=== PATIENT | male | born 1930 | race Hispanic/Latino ===

== ENCOUNTER 2019-12-19 08:11 | Inpatient (IN) | payer MEDICARE ==
--- NOTE | 2019-12-19 09:27 | Emergency Department Report ---
ED General Adult HPI - General Chief complaint: Dyspnea/Respdistress Stated complaint: TINO Time Seen by Provider: 12/19/19 09:13 Source: patient, EMS ( EMS documentation not available at time of chart dictation ), RN notes reviewed, old records reviewed Mode of arrival: Stretcher Limitations: Physical Limitation - History of Present Illness Initial comments: The patient is an 89-year-old gentleman. He is not known to myself previously. He has a history of a flutter, currently on Eliquis therapy, heart disease, status post angioplasty, currently on Eliquis, presenting to the ER with a complaint of painless shortness of breath. He reports compliance with his medications. He does not know who his primary care doctor is. He believes that his used building materials yard worker is Dr. Shanice Ferrer His shortness of breath has been getting worse over the past 2 days. He denies recent travel, surgeries, denies headache, neck pain, chest pain, abdominal pain, urinary symptoms, he has new onset orthopnea, he is not sure if he has lower extremity edema which is new or old. In the emergency room, his symptoms were improved with rest, elevation of the head of the bed, supplemental oxygen. EMS documentation is not available at this time. -: Gradual, days(s) Severity scale (0 -10): 0 Improves with: rest Worsens with: movement - Related Data Home Medications Medication Instructions Recorded Confirmed Last Taken Apixaban [Eliquis] 2.5 mg PO BID 12/19/19 12/19/19 12/18/19 08:00 Aspirin EC [Halfprin EC] 81 mg PO DAILY 12/19/19 12/19/19 12/18/19 08:00 AtorvaSTATin [Lipitor] 80 mg PO QHS 12/19/19 12/19/19 12/18/19 08:00 Clopidogrel [Plavix] 75 mg PO DAILY 12/19/19 12/19/19 12/18/19 08:00 Furosemide [Lasix TAB] 40 mg PO DAILY 12/19/19 12/19/19 12/18/19 08:00 Isosorbide Dinitrate [Isordil 10 mg PO TID 12/19/19 12/19/19 12/18/19 20:00 Titradose] Metoprolol Xl [Metoprolol 12.5 mg PO QDAY 12/19/19 12/19/19 12/18/19 08:00 SUCCINATE ER TAB] hydrALAZINE [Apresoline] 25 mg PO Q8HR 12/19/19 12/19/19 12/18/19 08:00 Allergies Allergy/AdvReac Type Severity Reaction Status Date / Time Penicillins Allergy Unknown Verified 10/18/19 08:32 Tetanus Vaccines and Toxoid Allergy Unknown Verified 10/18/19 08:32 [Tetanus Vaccines & Toxoid] ED Review of Systems ROS: Stated complaint: TINO Other details as noted in HPI Constitutional: malaise. denies: fever Eyes: denies: eye discharge ENT: congestion Respiratory: shortness of breath Cardiovascular: denies: chest pain, syncope Gastrointestinal: denies: nausea, vomiting, hematemesis, melena, hematochezia Genitourinary: denies: dysuria Musculoskeletal: as per HPI Skin: as per HPI Neurological: as per HPI Psychiatric: as per HPI Hematological/Lymphatic: as per HPI ED Past Medical Hx - Past Medical History Hx Hypertension: No Hx Heart Attack/AMI: Yes (Heart bypass surgery) Hx Congestive Heart Failure: No Hx Diabetes: No Hx GERD: Yes Hx Asthma: No Hx COPD: Yes Additional medical history: pneumonia in nov 2013, sleep apnea - Surgical History Hx Open Heart Surgery: Yes Additional Surgical History: knee surgery - Social History Smoking Status: Former Smoker Substance Use Type: None - Medications Home Medications: Home Medications Medication Instructions Recorded Confirmed Last Taken Type Apixaban [Eliquis] 2.5 mg PO BID 12/19/19 12/19/19 12/18/19 08:00 History Aspirin EC [Halfprin EC] 81 mg PO DAILY 12/19/19 12/19/19 12/18/19 08:00 History AtorvaSTATin [Lipitor] 80 mg PO QHS 12/19/19 12/19/19 12/18/19 08:00 History Clopidogrel [Plavix] 75 mg PO DAILY 12/19/19 12/19/19 12/18/19 08:00 History Furosemide [Lasix TAB] 40 mg PO DAILY 12/19/19 12/19/19 12/18/19 08:00 History Isosorbide Dinitrate [Isordil 10 mg PO TID 12/19/19 12/19/19 12/18/19 20:00 History Titradose] Metoprolol Xl [Metoprolol 12.5 mg PO QDAY 12/19/19 12/19/19 12/18/19 08:00 History SUCCINATE ER TAB] hydrALAZINE [Apresoline] 25 mg PO Q8HR 12/19/19 12/19/19 12/18/19 08:00 History ED Physical Exam - General Limitations: Physical Limitation General appearance: alert, anxious - Head Head exam: Present: atraumatic, normocephalic - Eye Eye exam: Present: normal appearance, EOMI. Absent: nystagmus - ENT ENT exam: Present: normal exam, normal orophraynx, mucous membranes moist, normal external ear exam - Neck Neck exam: Present: normal inspection, full ROM. Absent: tenderness, meningismus - Respiratory Respiratory exam: Present: rales (Very fine rales noted at the base), accessory muscle use, other (Patient is tachypneic initially). Absent: rhonchi, stridor - Cardiovascular Cardiovascular Exam: Present: regular rate, irregular rhythm, JVD. Absent: rubs, gallop - GI/Abdominal GI/Abdominal exam: Present: soft. Absent: distended, tenderness, guarding, rebound, rigid, pulsatile mass - Rectal Rectal exam: Present: deferred - Extremities Exam Extremities exam: Present: normal inspection, full ROM, pedal edema, other (2+ pulses noted in the bilateral upper and lower extremities. There is no palpable cord. negative Homans sign. Muscular compartments are soft. The pelvis is stable.). Absent: calf tenderness - Back Exam Back exam: Present: normal inspection, full ROM. Absent: tenderness, CVA tenderness (R), CVA tenderness (L), paraspinal tenderness, vertebral tenderness - Neurological Exam Neurological exam: Present: alert, other (There is no facial droop. The tongue is midline. Extraocular movements are intact bilaterally. There is 5 out of 5 strength in bilateral upper and lower extremities. Sensation is intact to light touch bilateral upper and lower extremities. ). Absent: motor sensory deficit - Psychiatric Psychiatric exam: Present: anxious - Skin Skin exam: Present: warm, dry, intact, normal color. Absent: rash ED Course Vital Signs 12/19/19 12/19/19 12/19/19 08:44 08:45 08:47 Temperature 98.5 F Pulse Rate 68 68 68 Respiratory 21 23 22 Rate Blood Pressure 134/66 134/66 O2 Sat by Pulse 93 94 93 Oximetry 12/19/19 12/19/19 12/19/19 08:52 09:00 09:15 Temperature Pulse Rate 67 67 Respiratory 21 25 H Rate Blood Pressure 149/81 145/77 O2 Sat by Pulse 96 94 94 Oximetry 12/19/19 12/19/19 12/19/19 09:31 09:45 10:01 Temperature Pulse Rate 66 66 66 Respiratory 13 22 26 H Rate Blood Pressure 145/77 136/71 136/71 O2 Sat by Pulse 81 L 80 L 96 Oximetry 12/19/19 12/19/19 12/19/19 10:15 10:31 10:45 Temperature Pulse Rate 67 78 66 Respiratory 20 14 25 H Rate Blood Pressure 136/71 136/71 136/71 O2 Sat by Pulse 96 89 94 Oximetry 12/19/19 12/19/19 12/19/19 11:00 11:15 11:31 Temperature Pulse Rate 66 67 66 Respiratory 17 17 20 Rate Blood Pressure 144/77 157/88 151/73 O2 Sat by Pulse 97 97 92 Oximetry 12/19/19 11:45 Temperature Pulse Rate 66 Respiratory 16 Rate Blood Pressure 140/74 O2 Sat by Pulse 91 Oximetry - Reevaluation(s) Reevaluation #1: 12/19/19 11:33 Laboratory studies show metabolic acidosis, arterial blood gas shows metabolic acidosis without respiratory compensation, renal insufficiency is noted, with hyperkalemia, lactic acidosis, and a probable type II myocardial infarction. Suspect that the patient may have cardiorenal syndrome. We will discuss with nephrology on-call to determine optimal plan of management. Patient may require simultaneous IV fluids as well as judicious diuresis. We will also discussed with the hospitalist. - Consultations Consultation #1: 12/19/19 12:03 Discussed with nephrology, Dr. Bonds, who recommends 40 mg of Lasix, 1 amp of sodium bicarbonate, 30 g of Kayexalate. We discussed the patient's history, physical, laboratory studies, and suspicion of cardiorenal syndrome with fluid overload. He will see the patient shortly. ED Medical Decision Making - Lab Data Result diagrams: 12/19/19 10:52 12/19/19 10:52 Vital Signs 12/19/19 12/19/19 08:47 08:52 Temperature 98.5 F Pulse Rate 68 Respiratory 22 Rate Blood Pressure 134/66 O2 Sat by Pulse 93 96 Oximetry - EKG Data -: EKG Interpreted by Wy - EKG Data 12/19/19 11:18 Atrial flutter, 4-1 AV block, normal axis, QTC 507 ms, T wave inversions V2 and V3, the EKG is abnormal, it is not consistent with a STEMI. There is no endorsement of chest pain. - Radiology Data Radiology results: report reviewed, image reviewed Print Report Referring Physician: HAMILTON JOHN Patient Name: CONNIE GUZMAN Date of : 1930 Sex: Male Report Date: 2019-12-19 Report Status: Finalized Findings [facility], [place] [address] [place] [address] XRay Report Signed Patient: CONNIE GUZMAN MR#: [id number] : 1930 Acct:[id number] Age/Sex: 89 / M ADM Date: 12/19/19 Loc: ED Attending Dr: Ordering Physician: HAMILTON JOHN MD Date of Service: 12/19/19 Procedure(s): XR chest 1V ap Accession Number(s): [id number] cc: HAMILTNO JOHN MD Fluoro Time In Minutes: CHEST 1 VIEW INDICATION: Dyspnea. COMPARISON: 10/18/2019 FINDINGS: Support devices: None. Heart: Within normal limits. Lungs/Pleura: Persistent mild edema. Additional findings: None. IMPRESSION: 1. Persistent mild edema. Signer Name: Long Vieira MD Signed: 12/19/2019 9:52 AM Workstation Name: [id number] Transcribed By: JW Dictated By: Long Vieira MD Electronically Authenticated By: Long Vieira MD Signed Date/Time: 12/19/19951 DD/ 0 - Medical Decision Making Differential diagnosis, including but not limited to: Congestive heart failure, pneumonia, atrial flutter, fluid overload, acute coronary syndrome Assessment and plan: 89-year-old gentleman with painless shortness of breath, found to be hypoxic, arterial blood gas shows acute hypoxemic respiratory failure, also was initially tachypneic, with fine rales, JVD, and lower extremity edema. X-ray of the chest suggests pulmonary vascular congestion. Clinical picture consistent with acute decompensated congestive heart failure. He appears to be very comfortable on supplemental oxygen. He is taking systemic anticoagulation, Eliquis. Laboratory studies pending at this time, we will admit to the medical service once initial diagnostics have resulted. Critical Care Time: Yes Critical care time in (mins) excluding proc time.: 35 Critical care attestation.: If time is entered above; I have spent that time in minutes in the direct care of this critically ill patient, excluding procedure time. ED Disposition Clinical Impression: Acute hypoxemic respiratory failure, Cardiorenal syndrome with renal failure Disposition: OP ADMIT IP TO THIS HOSP Is pt being admited?: Yes Does the pt Need Aspirin: Yes Condition: Serious Referrals: KENDELL DARBY MD [Primary Care Provider] - 3-5 Days
--- NOTE | 2019-12-19 09:56 | XRay Report ---
CHEST 1 VIEW INDICATION: Dyspnea. COMPARISON: 10/18/2019 FINDINGS: Support devices: None. Heart: Within normal limits. Lungs/Pleura: Persistent mild edema. Additional findings: None. IMPRESSION: 1. Persistent mild edema. Signer Name: Long Vieira MD Signed: 12/19/2019 9:52 AM Workstation Name: [id number]
[2019-12-19 10:07] LABS: ABG Base Excess -7.1 mmol/L (-2.0-3.0); ABG HCO3 18.1 mmol/L (20.0-26.0); ABG Methemoglobin 0.5 % (0.0-1.5); ABG Oxygen Saturation 92.7 % (95.0-99.0); ABG PCO2 35.9 mm Hg; ABG PH 7.321 pH Units (7.350-7.450); ABG PO2 69.4 mm Hg (80.0-90.0)
[2019-12-19 10:48] LABS: INR 1.1 (0.87-1.13)
[2019-12-19 10:50] LABS: Partial Thromboplastin Time 24.1 Sec. (24.2-36.6)
[2019-12-19 11:07] LABS: Basophils # (Auto) 0.1 K/mm3 (0.0-0.1); Basophils % (Auto) 1.2 % (0.0-1.8); Eosinophils # (Auto) 0.3 K/mm3 (0.0-0.4); Eosinophils % (Auto) 2.8 % (0.0-4.3); Hematocrit 33.7 % (35.5-45.6); Hemoglobin 10.6 gm/dl (11.8-15.2); Lymphocytes # (Auto) 0.8 K/mm3 (1.2-5.4); Lymphocytes % (Auto) 8.4 % (13.4-35.0); Mean Corpuscular HGB Conc 32 % (32-34); Mean Corpuscular Volume 90 fl (84-94); Monocytes # (Auto) 0.9 K/mm3 (0.0-0.8); Monocytes % (Auto) 8.9 % (0.0-7.3); Platelet Count 274 K/mm3 (140-440); Red Blood Count 3.73 M/mm3 (3.65-5.03); Red Cell Distribution Width 15.5 % (13.2-15.2)
[2019-12-19 11:30] LABS: Albumin 3.7 g/dL (3.9-5)
[2019-12-19] MEDS ORDERED: SODIUM BICARB 8.4% 50 MEQ/50 ML SYRINGE IV ONE (12:03)
[2019-12-19] MEDS ORDERED: FUROSEMIDE 40 MG/4 ML INJ IV ONE (12:03)
[2019-12-19] MEDS ORDERED: SODIUM POLYSTYRENE 15 GM/60 ML ORAL LIQD PO ONE (12:03)
[2019-12-19 13:12] LABS: Chol/HDL Ratio 3.39 %
--- NOTE | 2019-12-19 14:49 | History and Physical Report ---
History of Present Illness Date of examination: 12/19/19 Date of admission: 12/19/19 11:37 Chief complaint: Increasing SOB for History of present illness: 89-year-old male with history of a flutter and status post angioplasty, currently on Eliquis, presenting to the ER with a complaint of shortness of breath for 2 days.SOB on minimal exertion.No chest pain.Orthopnea present.No chest pain.Patient has class IV NYHA symptoms.No recent travel. No exposure to villar virus patients. Had cath on 10/18/19 with PCI of mid LAD ,Also Triple vessel disease .Given the complexity of CAD pateint was transferred to [facility] for further care. Past Medical History Hypertension Heart Attack/AMI: Yes (Heart bypass surgery) GERD: Yes COPD: Yes CHF Additional medical history: pneumonia in nov 2013, sleep apnea Surgical History Hx Open Heart Surgery: Yes Additional Surgical History: knee surgery Social History Smoking Status: Former Smoker Substance Use Type: None Family History Htn - Medications Home Medications: Home Medications Medication Instructions Recorded Confirmed Last Taken Type Apixaban [Eliquis] 2.5 mg PO BID 12/19/19 12/19/19 12/18/19 08:00 History Aspirin EC [Halfprin EC] 81 mg PO DAILY 12/19/19 12/19/19 12/18/19 08:00 History AtorvaSTATin [Lipitor] 80 mg PO QHS 12/19/19 12/19/19 12/18/19 08:00 History Clopidogrel [Plavix] 75 mg PO DAILY 12/19/19 12/19/19 12/18/19 08:00 History Furosemide [Lasix TAB] 40 mg PO DAILY 12/19/19 12/19/19 12/18/19 08:00 History Isosorbide Dinitrate [Isordil 10 mg PO TID 12/19/19 12/19/19 12/18/19 20:00 History Titradose] Metoprolol Xl [Metoprolol 12.5 mg PO QDAY 12/19/19 12/19/19 12/18/19 08:00 History SUCCINATE ER TAB] hydrALAZINE [Apresoline] 25 mg PO Q8HR 12/19/19 12/19/19 12/18/19 08:00 History Review of Systems ROS: Stated complaint: TINO Other details as noted in HPI Constitutional: malaise. denies: fever Eyes: denies: eye discharge ENT: congestion Respiratory: shortness of breath Cardiovascular: denies: chest pain, syncope Gastrointestinal: denies: nausea, vomiting, hematemesis, melena, hematochezia Genitourinary: denies: dysuria Musculoskeletal: as per HPI Skin: as per HPI Neurological: as per HPI Psychiatric: as per HPI Hematological/Lymphatic: as per HPI Medications and Allergies Allergies Allergy/AdvReac Type Severity Reaction Status Date / Time Penicillins Allergy Unknown Verified 10/18/19 08:32 Tetanus Vaccines and Toxoid Allergy Unknown Verified 10/18/19 08:32 [Tetanus Vaccines & Toxoid] Home Medications Medication Instructions Recorded Confirmed Last Taken Type Apixaban [Eliquis] 2.5 mg PO BID 12/19/19 12/19/19 12/18/19 08:00 History Aspirin EC [Halfprin EC] 81 mg PO DAILY 12/19/19 12/19/19 12/18/19 08:00 History AtorvaSTATin [Lipitor] 80 mg PO QHS 12/19/19 12/19/19 12/18/19 08:00 History Clopidogrel [Plavix] 75 mg PO DAILY 12/19/19 12/19/19 12/18/19 08:00 History Furosemide [Lasix TAB] 40 mg PO DAILY 12/19/19 12/19/19 12/18/19 08:00 History Isosorbide Dinitrate [Isordil 10 mg PO TID 12/19/19 12/19/19 12/18/19 20:00 History Titradose] Metoprolol Xl [Metoprolol 12.5 mg PO QDAY 12/19/19 12/19/19 12/18/19 08:00 History SUCCINATE ER TAB] hydrALAZINE [Apresoline] 25 mg PO Q8HR 12/19/19 12/19/19 12/18/19 08:00 History Exam - Constitutional Vitals: Temp Pulse Resp BP Pulse Ox 98.5 F 66 16 140/74 91 12/19/19 08:47 12/19/19 11:45 12/19/19 11:45 12/19/19 11:45 12/19/19 11:45 General appearance: Present: mild distress, well-nourished - EENT Eyes: Present: PERRL ENT: hearing intact, clear oral mucosa - Neck Neck: Present: supple, normal ROM - Respiratory Respiratory effort: normal Respiratory: bilateral: CTA - Cardiovascular Rhythm: regular Heart Sounds: Present: S1 & S2. Absent: rub, click - Extremities Extremities: pulses symmetrical, No edema Peripheral Pulses: within normal limits - Abdominal General gastrointestinal: Present: soft, non-tender, non-distended, normal bowel sounds Male genitourinary: Present: normal - Integumentary Integumentary: Present: clear, warm, dry - Musculoskeletal Musculoskeletal: gait normal, strength equal bilaterally - Psychiatric Psychiatric: appropriate mood/affect, intact judgment & insight - Neurologic Neurologic: CNII-XII intact, moves all extremities GABY score - Gaby Score Age > 65: (1) Yes Aspirin use within the Past 7 Days: (0) No 3 or more CAD Risk Factors: (0) No 2 or more Angina events in past 24 hrs: (0) No Known CAD with more than 50% Stenosis: (0) No Elevated Cardiac Markers: (0) No ST Deviation Greater than 0.5mm: (1) Yes GABY Score: 2 Results - Labs CBC & Chem 7: 12/19/19 10:52 12/20/19 05:33 Labs: Laboratory Last Values WBC 9.7 K/mm3 (4.5-11.0) 12/19/19 10:52 RBC 3.73 M/mm3 (3.65-5.03) 12/19/19 10:52 Hgb 10.6 gm/dl (11.8-15.2) L 12/19/19 10:52 Hct 33.7 % (35.5-45.6) L 12/19/19 10:52 MCV 90 fl (84-94) 12/19/19 10:52 MCH 28 pg (28-32) 12/19/19 10:52 MCHC 32 % (32-34) 12/19/19 10:52 RDW 15.5 % (13.2-15.2) H 12/19/19 10:52 Plt Count 274 K/mm3 (140-440) 12/19/19 10:52 Lymph % (Auto) 8.4 % (13.4-35.0) L 12/19/19 10:52 [place] % (Auto) 8.9 % (0.0-7.3) H 12/19/19 10:52 Eos % (Auto) 2.8 % (0.0-4.3) 12/19/19 10:52 Baso % (Auto) 1.2 % (0.0-1.8) 12/19/19 10:52 Lymph # 0.8 K/mm3 (1.2-5.4) L 12/19/19 10:52 [place] # 0.9 K/mm3 (0.0-0.8) H 12/19/19 10:52 Eos # 0.3 K/mm3 (0.0-0.4) 12/19/19 10:52 Baso # 0.1 K/mm3 (0.0-0.1) 12/19/19 10:52 Seg Neutrophils % 78.7 % (40.0-70.0) H 12/19/19 10:52 Seg Neutrophils # 7.6 K/mm3 (1.8-7.7) 12/19/19 10:52 PT 14.3 Sec. (12.2-14.9) 12/19/19 10:04 INR 1.10 (0.87-1.13) 12/19/19 10:04 APTT 24.1 Sec. (24.2-36.6) L 12/19/19 10:04 ABG pH 7.321 pH Units (7.350-7.450) L 12/19/19 09:45 ABG pCO2 35.9 mm Hg 12/19/19 09:45 ABG pO2 69.4 mm Hg (80.0-90.0) L 12/19/19 09:45 ABG HCO3 18.1 mmol/L (20.0-26.0) L 12/19/19 09:45 ABG O2 Saturation 92.7 % (95.0-99.0) L 12/19/19 09:45 ABG O2 Content 18.1 (0.0-44) 12/19/19 09:45 ABG Base Excess -7.1 mmol/L (-2.0-3.0) L 12/19/19 09:45 ABG Hemoglobin 14.2 gm/dl (14.0-18.0) 12/19/19 09:45 ABG Carboxyhemoglobin 1.5 % (0.0-5.0) 12/19/19 09:45 ABG Methemoglobin 0.5 % (0.0-1.5) 12/19/19 09:45 Oxyhemoglobin 90.8 % (95.0-99.0) L 12/19/19 09:45 FiO2 21 % 12/19/19 09:45 Sodium 142 mmol/L (137-145) 12/19/19 10:52 Potassium 5.6 mmol/L (3.6-5.0) H 12/19/19 10:52 Chloride 108.6 mmol/L (98-107) H 12/19/19 10:52 Carbon Dioxide 17 mmol/L (22-30) L 12/19/19 10:52 Anion Gap 22 mmol/L 12/19/19 10:52 BUN 67 mg/dL (9-20) H 12/19/19 10:52 Creatinine 3.7 mg/dL (0.8-1.5) H 12/19/19 10:52 Estimated GFR 16 ml/min 12/19/19 10:52 BUN/Creatinine Ratio 18 % 12/19/19 10:52 Glucose 93 mg/dL (75-100) 12/19/19 10:52 POC Glucose 90 (70-105) 12/19/19 12:11 Lactic Acid 2.70 mmol/L (0.7-2.0) H* 12/19/19 10:52 Calcium 9.0 mg/dL (8.4-10.2) 12/19/19 10:52 Magnesium 2.00 mg/dL (1.7-2.3) 12/19/19 10:52 Total Bilirubin 0.30 mg/dL (0.1-1.2) 12/19/19 10:52 AST 50 units/L (5-40) H 12/19/19 10:52 ALT 55 units/L (7-56) 12/19/19 10:52 Alkaline Phosphatase 144 units/L (35-129) H 12/19/19 10:52 Total Creatine Kinase 73 units/L (55-170) 12/19/19 10:52 Troponin T 0.053 ng/mL (0.00-0.029) H 12/19/19 10:52 Total Protein 7.8 g/dL (6.3-8.2) 12/19/19 10:52 Albumin 3.7 g/dL (3.9-5) L 12/19/19 10:52 Albumin/Globulin Ratio 0.9 % 12/19/19 10:52 Triglycerides 86 mg/dL (2-149) 12/19/19 10:52 Cholesterol 129 mg/dL (50-199) 12/19/19 10:52 LDL Cholesterol Direct 88 mg/dL (50-130) 12/19/19 10:52 HDL Cholesterol 38 mg/dL (40-59) L 12/19/19 10:52 Cholesterol/HDL Ratio 3.39 % 12/19/19 10:52 Blood Type O POSITIVE 12/19/19 10:52 Antibody Screen Negative 12/19/19 10:52 Short CBC 12/19/19 Range/Units 10:52 WBC 9.7 (4.5-11.0) K/mm3 Hgb 10.6 L (11.8-15.2) gm/dl Hct 33.7 L (35.5-45.6) % Plt Count 274 (140-440) K/mm3 BMP 12/19/19 10:52 Sodium 142 Potassium 5.6 H Chloride 108.6 H Carbon Dioxide 17 L BUN 67 H Creatinine 3.7 H Glucose 93 Calcium 9.0 Cardiac Enzymes 12/19/19 Range/Units 10:52 Total Creatine Kinase 73 (55-170) units/L Troponin T 0.053 H (0.00-0.029) ng/mL Liver Function 12/19/19 Range/Units 10:52 Total Bilirubin 0.30 (0.1-1.2) mg/dL AST 50 H (5-40) units/L ALT 55 (7-56) units/L Alkaline Phosphatase 144 H (35-129) units/L Albumin 3.7 L (3.9-5) g/dL Urine 12/19/19 Range/Units 22:00 Urine Color Colorless (Yellow) Urine pH 6.0 (5.0-7.0) Ur Specific [place] 1.008 (1.003-1.030) Urine Protein <15 mg/dl (Negative) mg/dL Urine Glucose (UA) Neg (Negative) mg/dL - Imaging and Cardiology EKG: report reviewed Chest x-ray: report reviewed Imaging and Cardiology: CXR Heart: Within normal limits. Lungs/Pleura: Persistent mild edema. Additional findings: None. IMPRESSION: 1. Persistent mild edema EKG ATRIAL FLUTTER WITH PREDOMINANT 4:1 AV BLOCK ABNORMAL T, CONSIDER ISCHEMIA, ANTERIOR LEADS PROLONGED QT INTERVAL [place]/IV: IV Catheter Type [Left INT / Saline Lock Antecubital] Assessment and Plan Advance Directives: Yes (Full code) VTE prophylaxis?: Chemical Plan of care discussed with patient/family: Yes - Patient Problems (1) Acute hypoxemic respiratory failure Current Visit: Yes Status: Acute Plan to address problem: Patient's P O2 was 69.4 Sec to CHF Diuresis Creatinine may go up further (2) Acute exacerbation of CHF (congestive heart failure) Current Visit: Yes Status: Acute Qualifiers: Heart failure type: combined systolic and diastolic Qualified Code(s): I50.43 - Acute on chronic combined systolic (congestive) and diastolic (congestive) heart failure Plan to address problem: Lasix 40 mg IV Bid Daily weights Daily i/o's (3) REZA (acute kidney injury) Current Visit: No Status: Acute Plan to address problem: Baseline bun/creatinine was 21/1.6 on 10/18/2019 Today it is 67/3.7 and patient in CHF exacerbation. Treatment conundrum because patient has to be diuresed Cr[place] may go up further Nephrology consult requested (4) Hyperkalemia Current Visit: No Status: Acute Plan to address problem: Treated Recheck K level (5) Atrial flutter, chronic Current Visit: Yes Status: Chronic Plan to address problem: on Eliuquis and Beta blockers (6) HLD (hyperlipidemia) Current Visit: Yes Status: Chronic Qualifiers: Hyperlipidemia type: mixed hyperlipidemia Qualified Code(s): E78.2 - Mixed hyperlipidemia Plan to address problem: Cont statins (7) Transaminitis Current Visit: Yes Status: Acute Plan to address problem: Sec to Hepatic congestion Check Hepatitis profile (8) Malnutrition Current Visit: Yes Status: Chronic Qualifiers: Protein-calorie malnutrition severity: mild Plan to address problem: Dietary supplements (9) Elevated troponin level Current Visit: Yes Status: Acute Plan to address problem: Troponin leak sec to CHF and elevated Creatinine (10) Elevated lactic acid level Current Visit: Yes Status: Acute (11) CAD (coronary artery disease) Current Visit: Yes Status: Chronic Qualifiers: Coronary Disease-Associated Artery/Lesion type: bypass graft [place] vs. transplanted heart: [place] heart Plan to address problem: COnt Eliquis (12) HTN (hypertension) Current Visit: Yes Status: Chronic Qualifiers: Hypertension type: essential hypertension Qualified Code(s): I10 - Essential (primary) hypertension Plan to address problem: Cont anti hypertensives (13) DVT prophylaxis Current Visit: Yes Status: Chronic Plan to address problem: On Eliquis for A flutter and CAD GIprophylaxis initiated
--- NOTE | 2019-12-19 16:21 | Consultation ---
History of Present Illness - Reason for Consult Consult date: 12/19/19 acute renal failure Requesting physician: HAMILTON JOHN - History of Present Illness The patient is an 89-year-old gentleman. He is not known to myself previously. He has a history of a flutter, currently on Eliquis therapy, heart disease, status post angioplasty, currently on Eliquis, presenting to the ER with a complaint of painless shortness of breath. He reports compliance with his medi cations. He does not know who his primary care doctor is. He believes that his bread wrapping machine feeder is Dr. Shanice Ferrer His shortness of breath has been getting worse over the past 2 days. He denies recent travel, surgeries, denies headache, neck pain, chest pain, abdominal pain, urinary symptoms, he has new onset orthopnea, he is not sure if he has lower extremity edema which is new or old. In the emergency room, his symptoms were improved with rest, elevation of the head of the bed, supplemental oxygen. Records indicate that he had a serum creatinine of 1.6 in October of this year. Prior to that his creatinine has also been elevated to approximately 2.0 back in 2018. Patient states that he had seen a lead qa analyst before in the [place] area. However does not recall his name. Past History Past Medical History: hypertension, other (Chronic kidney disease, atrial flutter and coronary artery disease) Past Surgical History: No surgical history Social history: no significant social history Family history: no significant family history Medications and Allergies Allergies Allergy/AdvReac Type Severity Reaction Status Date / Time Penicillins Allergy Unknown Verified 10/18/19 08:32 Tetanus Vaccines and Toxoid Allergy Unknown Verified 10/18/19 08:32 [Tetanus Vaccines & Toxoid] Home Medications Medication Instructions Recorded Confirmed Last Taken Type Apixaban [Eliquis] 2.5 mg PO BID 12/19/19 12/19/19 12/18/19 08:00 History Aspirin EC [Halfprin EC] 81 mg PO DAILY 12/19/19 12/19/19 12/18/19 08:00 History AtorvaSTATin [Lipitor] 80 mg PO QHS 12/19/19 12/19/19 12/18/19 08:00 History Clopidogrel [Plavix] 75 mg PO DAILY 12/19/19 12/19/19 12/18/19 08:00 History Furosemide [Lasix TAB] 40 mg PO DAILY 12/19/19 12/19/19 12/18/19 08:00 History Isosorbide Dinitrate [Isordil 10 mg PO TID 12/19/19 12/19/19 12/18/19 20:00 History Titradose] Metoprolol Xl [Metoprolol 12.5 mg PO QDAY 12/19/19 12/19/19 12/18/19 08:00 History SUCCINATE ER TAB] hydrALAZINE [Apresoline] 25 mg PO Q8HR 12/19/19 12/19/19 12/18/19 08:00 History Review of Systems All systems: negative (Negative except as noted above) Exam - Vital Signs Vital signs: Vital Signs Pulse Resp Pulse Ox 68 21 93 12/19/19 08:44 12/19/19 08:44 12/19/19 08:44 - General Appearance General appearance: well-developed, well-nourished, appears stated age EENT: PERRL, mucous membranes moist Neck: Present: neck supple, trachea midline, JVD/HJR (JVD positive). Absent: Masses Respiratory: Rales (Bibasal crackles) Heart: irregularly irregular Gastrointestinal: Present: normal, normoactive bowel sounds Integumentary: other (Trace edema) Results - Lab Results 12/19/19 10:52 12/19/19 10:52 Most recent lab results ABG pH 7.321 pH Units (7.350-7.450) L 12/19/19 09:45 ABG pCO2 35.9 mm Hg 12/19/19 09:45 ABG pO2 69.4 mm Hg (80.0-90.0) L 12/19/19 09:45 ABG HCO3 18.1 mmol/L (20.0-26.0) L 12/19/19 09:45 ABG O2 Saturation 92.7 % (95.0-99.0) L 12/19/19 09:45 Calcium 9.0 mg/dL (8.4-10.2) 12/19/19 10:52 Magnesium 2.00 mg/dL (1.7-2.3) 12/19/19 10:52 Assessment and Plan Impression * Acute on chronic renal failure. Baseline creatinine approximately 1.13 October 2019 * Shortness of breath. Secondary to congestive heart failure * Atrial flutter * Hyperkalemia * Metabolic acidosis Recommendations * Patient is clinically volume overloaded. Continue loop diuretics as needed * He most likely has underlying cardiorenal syndrome * Agree with medical management of hyperkalemia * Add oral sodium bicarbonate * Check a UA as well as renal ultrasound * Check vasculitis work-up as well * Avoid nephrotoxins * If renal function worsens and/or if inadequate response to diuresis, he may need renal replacement therapy * Thank you very much for the consultation. Shall follow along with you
[2019-12-19] MEDS: FUROSEMIDE 40 MG/4 ML INJ IV SCH (18:59)
[2019-12-19] MEDS ORDERED: HYDROmorphone 1 MG/1 ML INJ IV PRN (19:31)
[2019-12-19] MEDS ORDERED: ACETAMINOPHEN 325 MG TAB PO PRN ×2 (19:31→19:34)
[2019-12-19] MEDS ORDERED: METOCLOPRAMIDE 10 MG/2 ML INJ IV PRN (19:31)
[2019-12-19] MEDS ORDERED: ONDANSETRON 4 MG/2 ML INJ IV PRN ×2 (19:31→19:34)
[2019-12-19] MEDS ORDERED: oxyCODONE /ACETAMINOPHEN 5-325MG TAB PO PRN (19:31)
[2019-12-19] MEDS ORDERED: PROMETHAZINE 25 MG RECT SUPP PR PRN (19:31)
[2019-12-19] MEDS: METOPROLOL SUCCINATE XL 25 MG TAB PO SCH (20:25)
[2019-12-19] MEDS: hydrALAZINE 25 MG TAB PO SCH (20:41)
[2019-12-19] MEDS: FAMOTIDINE 20 MG/2 ML INJ IV SCH (20:42)
[2019-12-19] MEDS: APIXABAN 2.5 MG TAB PO SCH (20:42)
[2019-12-19] MEDS: CLOPIDOGREL 75 MG TAB PO SCH (20:46)
[2019-12-19] MEDS: ASPIRIN EC 81 MG TAB PO SCH (20:46)
[2019-12-19 20:57] LABS: Hepatitis B Surface Antigen Non-Reactive (Negative); Hepatitis C Virus Antibody Non-Reactive (NonReactive)
[2019-12-20 00:19] LABS: Bilirubin,Urine NEG (Negative); Blood,Urine NEG (Negative); Color,Urine Colorless (Yellow); Protein,Urine <15 mg/dL mg/dL (Negative); Urobilinogen,Urine < 2.0 mg/dL (<2.0); WBC,Urine < 1.0 /HPF (0.0-6.0)
[2019-12-20] MEDS: ISOSORBIDE DINITRATE 10 MG TAB PO SCH ×4 (04:34→21:58)
[2019-12-20] MEDS: FAMOTIDINE 20 MG/2 ML INJ IV SCH ×2 (04:35→09:00)
[2019-12-20] MEDS: APIXABAN 2.5 MG TAB PO SCH ×3 (04:35→21:58)
[2019-12-20] MEDS: SODIUM BICARBONATE 650 MG TAB PO SCH ×3 (04:35→21:58)
[2019-12-20] MEDS: hydrALAZINE 25 MG TAB PO SCH ×4 (04:35→21:58)
[2019-12-20 06:49] LABS: Calcium 8.5 mg/dL (8.4-10.2)
[2019-12-20] MEDS: FUROSEMIDE 40 MG/4 ML INJ IV SCH ×2 (07:39→17:39)
[2019-12-20] MEDS: ASPIRIN EC 81 MG TAB PO SCH (09:00)
[2019-12-20] MEDS: METOPROLOL SUCCINATE XL 25 MG TAB PO SCH (09:01)
[2019-12-20] MEDS: CLOPIDOGREL 75 MG TAB PO SCH (09:01)
--- NOTE | 2019-12-20 11:54 | Progress Note ---
Assessment and Plan Impression * Acute on chronic renal failure. Baseline creatinine approximately 1.13 October 2019 * Shortness of breath. Secondary to congestive heart failure * Atrial flutter * Hyperkalemia * Metabolic acidosis * Coronary artery disease. Recent myocardial infarction. Recommendations * Patient is clinically volume overloaded. Continue loop diuretics as needed * Discussed with Dr. Gonzalez . He had acute myocardial infarction in October of this year and was transferred to [facility]. He had acute kidney injury at that time and required 1 dialysis treatment. His most recent creatinine was approximately 4.2 . He most likely had ATN. * His renal function appears to be stable. No urgent indication for dialysis today * He seems to be responding to loop diuretic as well. 2100 cc of urine recorded since admission * Hyperkalemia has been corrected with medical treatment * Acidosis is improving. Continue oral sodium bicarbonate * His urine does not show any dipstick blood or protein. * Follow-up results of renal ultrasound and vasculitis work-up * Avoid nephrotoxins * If renal function worsens and/or if inadequate response to diuresis, he may need renal replacement therapy Subjective Date of service: 12/20/19 Interval history: Patient is comfortable today. His shortness of breath is improving. Denies any nausea or vomiting. Objective - Vital Signs Vital signs: Vital Signs - 12hr 12/20/19 12/20/19 12/20/19 02:55 04:02 05:03 Temperature 97.8 F Pulse Rate 69 66 Respiratory 20 18 Rate Blood Pressure 158/71 O2 Sat by Pulse 94 Oximetry 12/20/19 12/20/19 07:39 08:43 Temperature 98.3 F Pulse Rate 69 65 Respiratory 18 Rate Blood Pressure 158/71 138/57 O2 Sat by Pulse 78 L Oximetry - General Appearance General appearance: well-developed, well-nourished, appears stated age EENT: PERRL, mucous membranes moist Neck: JVD (Neck vein encouraged.) Respiratory: Present: Rales (At the bases) Cardiology: irregularly irregular Gastrointestinal: normal, normoactive bowel sounds Integumentary: other (Trace edema) - Lab 12/19/19 10:52 12/20/19 05:33 Most recent lab results ABG pH 7.321 pH Units (7.350-7.450) L 12/19/19 09:45 ABG pCO2 35.9 mm Hg 12/19/19 09:45 ABG pO2 69.4 mm Hg (80.0-90.0) L 12/19/19 09:45 ABG HCO3 18.1 mmol/L (20.0-26.0) L 12/19/19 09:45 ABG O2 Saturation 92.7 % (95.0-99.0) L 12/19/19 09:45 Calcium 8.5 mg/dL (8.4-10.2) 12/20/19 05:33 Magnesium 2.00 mg/dL (1.7-2.3) 12/19/19 10:52 Medications & Allergies - Medications Allergies/Adverse Reactions: Allergies Penicillins Allergy (Verified 10/18/19 08:32) Unknown Tetanus Vaccines and Toxoid [Tetanus Vaccines & Toxoid] Allergy (Verified 10/18/19 08:32) Unknown Home Medications: Home Medications Medication Instructions Recorded Confirmed Last Taken Type Apixaban [Eliquis] 2.5 mg PO BID 12/19/19 12/19/19 12/18/19 08:00 History Aspirin EC [Halfprin EC] 81 mg PO DAILY 12/19/19 12/19/19 12/18/19 08:00 History AtorvaSTATin [Lipitor] 80 mg PO QHS 12/19/19 12/19/19 12/18/19 08:00 History Clopidogrel [Plavix] 75 mg PO DAILY 12/19/19 12/19/19 12/18/19 08:00 History Furosemide [Lasix TAB] 40 mg PO DAILY 12/19/19 12/19/19 12/18/19 08:00 History Isosorbide Dinitrate [Isordil 10 mg PO TID 12/19/19 12/19/19 12/18/19 20:00 History Titradose] Metoprolol Xl [Metoprolol 12.5 mg PO QDAY 12/19/19 12/19/19 12/18/19 08:00 History SUCCINATE ER TAB] hydrALAZINE [Apresoline] 25 mg PO Q8HR 12/19/19 12/19/19 12/18/19 08:00 History Active Medications: Generic Name Dose Route Start Last Admin Trade Name Freq PRN Reason Stop Dose Admin Acetaminophen 650 mg 12/19/19 19:34 Tylenol PO Q4H PRN Pain MILD(1-3)/Fever >100.5/KANG Apixaban 2.5 mg 12/19/19 22:00 12/20/19 09:01 Eliquis PO 2.5 mg BID RAVI Administration Protocol Aspirin 81 mg 12/19/19 20:00 12/20/19 09:00 Halfprin Ec PO 81 mg DAILY RAVI Administration Clopidogrel Bisulfate 75 mg 12/19/19 20:00 12/20/19 09:01 Plavix PO 75 mg DAILY RAVI Administration Famotidine 10 mg 12/20/19 22:00 Pepcid PO BID [facility] Furosemide 40 mg 12/19/19 18:00 12/20/19 07:39 Lasix IV 40 mg 0600,1800 [facility] Administration Hydralazine HCl 25 mg 12/19/19 22:00 12/20/19 07:39 Apresoline PO 25 mg Q8HR RAVI Administration Hydromorphone HCl 0.5 mg 12/19/19 19:31 Dilaudid IV Q3H PRN Pain , Severe (7-10) Isosorbide Dinitrate 10 mg 12/19/19 20:00 12/20/19 08:00 Isordil Titradose PO 10 mg TID [facility] Administration Metoclopramide HCl 5 mg 12/19/19 19:31 Reglan IV Q6H PRN Nausea And Vomiting Metoprolol Succinate 12.5 mg 12/19/19 20:00 12/20/19 09:01 Metoprolol Xl PO 12.5 mg QDAY RAVI Administration Ondansetron HCl 4 mg 12/19/19 19:34 Zofran IV Q8H PRN Nausea And Vomiting Oxycodone/Acetaminophen 1 tab 12/19/19 19:31 Percocet 5/325 PO Q6H PRN Pain, Moderate (4-6) Promethazine HCl 25 mg 12/19/19 19:31 Phenergan [place] Q6H PRN N/V IF NPO AND NO IV ACCESS Sodium Bicarbonate 650 mg 12/19/19 22:00 12/20/19 09:00 Sodium Bicarbonate PO 650 mg BID RAVI Administration Sodium Chloride 10 ml 12/19/19 22:00 12/20/19 09:02 Sodium Chloride Flush Syringe 10 Ml IV 10 ml BID RAVI Administration Sodium Chloride 10 ml 12/19/19 19:31 Sodium Chloride Flush Syringe 10 Ml IV PRN PRN LINE FLUSH
--- NOTE | 2019-12-20 12:01 | Consultation ---
History of Present Illness Consult date: 12/20/19 Requesting physician: YESI COOPER Consult reason: congestive heart failure History of present illness: This is an 89-year-old white male with past medical history of known coronary arterial disease in October had a myocardial infarction which had stenting of his mid LAD across a 90% diagonal patient had distal RCA disease sluggish flow in the LAD was transferred to [place]. Patient found have a right pseudoaneurysm repair requiring blood transfusion secondary to hypotension. Patient also wanted to acute renal failure requiring hemodialysis. Patient also was at [place] on December and had [facility] cardioversion. Support there was persistent patient had a creatinine level IV.5 there. Patient has history of atrial flutter is found to be back in atrial flutter controlled rate. Patient is receiving IV diuretics and source (improving. Patient is on acute on chronic renal failure. Past History Past Medical History: atrial fib (atrial flutter), CAD, hypertension, renal failure, other (Chronic kidney disease, atrial flutter and coronary artery disease) Past Surgical History: No surgical history, CABG, Other (right groin pseudoaneurysm repair) Social history: no significant social history Family history: no significant family history Medications and Allergies Allergies Allergy/AdvReac Type Severity Reaction Status Date / Time Penicillins Allergy Unknown Verified 10/18/19 08:32 Tetanus Vaccines and Toxoid Allergy Unknown Verified 10/18/19 08:32 [Tetanus Vaccines & Toxoid] Home Medications Medication Instructions Recorded Confirmed Last Taken Type Apixaban [Eliquis] 2.5 mg PO BID 12/19/19 12/19/19 12/18/19 08:00 History Aspirin EC [Halfprin EC] 81 mg PO DAILY 12/19/19 12/19/19 12/18/19 08:00 History AtorvaSTATin [Lipitor] 80 mg PO QHS 12/19/19 12/19/19 12/18/19 08:00 History Clopidogrel [Plavix] 75 mg PO DAILY 12/19/19 12/19/19 12/18/19 08:00 History Furosemide [Lasix TAB] 40 mg PO DAILY 12/19/19 12/19/19 12/18/19 08:00 History Isosorbide Dinitrate [Isordil 10 mg PO TID 12/19/19 12/19/19 12/18/19 20:00 History Titradose] Metoprolol Xl [Metoprolol 12.5 mg PO QDAY 12/19/19 12/19/19 12/18/19 08:00 History SUCCINATE ER TAB] hydrALAZINE [Apresoline] 25 mg PO Q8HR 12/19/19 12/19/19 12/18/19 08:00 History Active Meds: Active Medications Acetaminophen (Tylenol) 650 mg PO Q4H PRN PRN Reason: Pain MILD(1-3)/Fever >100.5/KANG Apixaban (Eliquis) 2.5 mg PO BID [facility]; Protocol Last Admin: 12/20/19 09:01 Dose: 2.5 mg Documented by: Aspirin (Halfprin Ec) 81 mg PO DAILY [facility] Last Admin: 12/20/19 09:00 Dose: 81 mg Documented by: Clopidogrel Bisulfate (Plavix) 75 mg PO DAILY [facility] Last Admin: 12/20/19 09:01 Dose: 75 mg Documented by: Famotidine (Pepcid) 10 mg PO BID [facility] Furosemide (Lasix) 40 mg IV 0600,1800 [facility] Last Admin: 12/20/19 07:39 Dose: 40 mg Documented by: Hydralazine HCl (Apresoline) 25 mg PO Q8HR [facility] Last Admin: 12/20/19 07:39 Dose: 25 mg Documented by: Hydromorphone HCl (Dilaudid) 0.5 mg IV Q3H PRN PRN Reason: Pain , Severe (7-10) Isosorbide Dinitrate (Isordil Titradose) 10 mg PO TID [facility] Last Admin: 12/20/19 08:00 Dose: 10 mg Documented by: Metoclopramide HCl (Reglan) 5 mg IV Q6H PRN PRN Reason: Nausea And Vomiting Metoprolol Succinate (Metoprolol Xl) 12.5 mg PO QDAY [facility] Last Admin: 12/20/19 09:01 Dose: 12.5 mg Documented by: Ondansetron HCl (Zofran) 4 mg IV Q8H PRN PRN Reason: Nausea And Vomiting Oxycodone/Acetaminophen (Percocet 5/325) 1 tab PO Q6H PRN PRN Reason: Pain, Moderate (4-6) Promethazine HCl (Phenergan) 25 mg CO Q6H PRN PRN Reason: N/V IF NPO AND NO IV ACCESS Sodium Bicarbonate (Sodium Bicarbonate) 650 mg PO BID [facility] Last Admin: 12/20/19 09:00 Dose: 650 mg Documented by: Sodium Chloride (Sodium Chloride Flush Syringe 10 Ml) 10 ml IV BID [facility] Last Admin: 12/20/19 09:02 Dose: 10 ml Documented by: Sodium Chloride (Sodium Chloride Flush Syringe 10 Ml) 10 ml IV PRN PRN PRN Reason: LINE FLUSH Physical Examination Vital Signs Pulse Resp Pulse Ox 68 21 93 12/19/19 08:44 12/19/19 08:44 12/19/19 08:44 General appearance: no acute distress, well-nourished HEENT: Positive: PERRL, Mucus Membranes Moist Neck: Positive: neck supple, trachea midline Cardiac: Positive: Reg Rate and Rhythm, Irregularly Regular, S1/S2. Negative: Audible Murmur Lungs: Positive: clear to auscultation, Normal Breath Sounds, Decreased Breath Sounds Neuro: Positive: Grossly Intact Abdomen: Positive: Soft, Active Bowel Sounds. Negative: Tender, Distended Male genitourinary: Positive: normal Skin: Positive: Clear Incision: Cardiac Cath Site Musculoskeletal: No Pain, Normal Range of Motion Extremities: Present: normal. Absent: edema Results 12/19/19 10:52 12/20/19 05:33 Lipids 12/19/19 Range/Units 10:52 HDL Cholesterol 38 L (40-59) mg/dL Cholesterol/HDL Ratio 3.39 % Comprehensive Metabolic Panel 12/20/19 Range/Units 05:33 Sodium 138 (137-145) mmol/L Potassium 4.2 D (3.6-5.0) mmol/L Chloride 101.5 (98-107) mmol/L Carbon Dioxide 19 L (22-30) mmol/L BUN 68 H (9-20) mg/dL Creatinine 3.5 H (0.8-1.5) mg/dL Glucose 89 (75-100) mg/dL Calcium 8.5 (8.4-10.2) mg/dL - Imaging and Cardiology Echo: report reviewed ([place] 12/2019. Normal LV function) Cardiac cath: report reviewed (10/2019 with a patent LAD trifurcation 99% PCI of the LAD with 2 drug-eluting stents circumflex. 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 diuretics if patient can maintain euvolemic status will hold the dialysis not patient may require dialysis discussed this with patient - Patient Problems (1) NSTEMI (non-ST elevated myocardial infarction) Current Visit: Yes Status: Acute Plan to address problem: type 2 (2) Acute exacerbation of CHF (congestive heart failure) Current Visit: Yes Status: Acute Qualifiers: Heart failure type: combined systolic and diastolic Qualified Code(s): I50.43 - Acute on chronic combined systolic (congestive) and diastolic (congestive) heart failure (3) Acute hypoxemic respiratory failure Current Visit: Yes Status: Acute (4) Cardiorenal syndrome with renal failure Current Visit: Yes Status: Acute (5) Atrial flutter, chronic Current Visit: Yes Status: Chronic (6) CAD (coronary artery disease) Current Visit: Yes Status: Chronic Qualifiers: Coronary Disease-Associated Artery/Lesion type: bypass graft [place] vs. tra nsplanted heart: [place] heart Associated angina: with stable angina Qualified Code(s): I25.708 - Atherosclerosis of coronary artery bypass graft(s), unspecified, with other forms of angina pectoris (7) HLD (hyperlipidemia) Current Visit: Yes Status: Chronic Qualifiers: Hyperlipidemia type: mixed hyperlipidemia Qualified Code(s): E78.2 - Mixed hyperlipidemia (8) HTN (hypertension) Current Visit: Yes Status: Chronic Qualifiers: Hypertension type: essential hypertension Qualified Code(s): I10 - Essential (primary) hypertension
--- NOTE | 2019-12-20 12:13 | Ultrasound Report ---
Renal ultrasound. HISTORY: Acute renal insufficiency. FINDINGS: Right kidney measures 10.5 x 4.4 x 3.8 cm. Cortex measures 1.2 cm. Left kidney measures 10. 1 x 4.3 x 4.5 cm. Cortex measures 1 cm. Negative for mass or obstruction. Cortical echogenicity is no rmal. An anterior right renal cyst measures 1.6 cm. There are 2 left-sided cyst measuring 1.9 cm each. The bladder contains moderate urine. IMPRESSION: Benign-appearing renal cysts. Signer Name: Lorenzo Chen MD Signed: 12/20/2019 12:08 PM Workstation Name: [id number]
--- NOTE | 2019-12-20 16:57 | Progress Note ---
Assessment and Plan - Patient Problems (1) Acute hypoxemic respiratory failure Current Visit: Yes Status: Acute Plan to address problem: Patient's P O2 was 69.4 Sec to CHF Diuresis Creatinine may go up further Improved to 68/3.5 (2) Acute exacerbation of CHF (congestive heart failure) Current Visit: Yes Status: Acute Qualifiers: Heart failure type: combined systolic and diastolic Qualified Code(s): I50.43 - Acute on chronic combined systolic (congestive) and diastolic (congestive) heart failure Plan to address problem: Lasix 40 mg IV Bid Daily weights Daily i/o's Symptomatically slightly better (3) REZA (acute kidney injury) Current Visit: No Status: Acute Plan to address problem: Baseline bun/creatinine was 21/1.6 on 10/18/2019 Today it is 67/3.7 and patient in CHF exacerbation. Treatment conundrum because patient has to be diuresed Cratine may go up further Nephrology consult appreciated Creatinine improved from 3.7-3.5 (4) Hyperkalemia Current Visit: No Status: Acute Plan to address problem: Treated K level improved to normal--4.2 from 5.6 (5) Atrial flutter, chronic Current Visit: Yes Status: Chronic Plan to address problem: on Eliuquis and Beta blockers (6) HLD (hyperlipidemia) Current Visit: Yes Status: Chronic Qualifiers: Hyperlipidemia type: mixed hyperlipidemia Qualified Code(s): E78.2 - Mixed hyperlipidemia Plan to address problem: Cont statins (7) Transaminitis Current Visit: Yes Status: Acute Plan to address problem: Sec to Hepatic congestion Hepatitis profile negative (8) Malnutrition Current Visit: Yes Status: Chronic Qualifiers: Protein-calorie malnutrition severity: mild Plan to address problem: Dietary supplements (9) Elevated troponin level Current Visit: Yes Status: Acute Plan to address problem: Troponin leak sec to CHF and elevated Creatinine (10) Elevated lactic acid level Current Visit: Yes Status: Acute (11) CAD (coronary artery disease) Current Visit: Yes Status: Chronic Qualifiers: Coronary Disease-Associated Artery/Lesion type: bypass graft [place] vs. transplanted heart: [place] heart Associated angina: with stable angina Qualified Code(s): I25.708 - Atherosclerosis of coronary artery bypass graft(s), unspecified, with other forms of angina pectoris Plan to address problem: COnt Eliquis (12) HTN (hypertension) Current Visit: Yes Status: Chronic Qualifiers: Hypertension type: essential hypertension Qualified Code(s): I10 - Essential (primary) hypertension Plan to address problem: Cont anti hypertensives (13) DVT prophylaxis Current Visit: Yes Status: Chronic Plan to address problem: On Eliquis for A flutter and CAD GIprophylaxis initiated Subjective Date of service: 12/20/19 Objective - Constitutional Vitals: Vital Signs - 12hr 12/20/19 12/20/19 12/20/19 05:03 07:39 08:43 Temperature 98.3 F Pulse Rate 66 69 65 Respiratory 18 Rate Blood Pressure 158/71 138/57 O2 Sat by Pulse 78 L Oximetry 12/20/19 12/20/19 10:00 12:16 Temperature 98.1 F Pulse Rate Respiratory 18 Rate Blood Pressure 121/68 O2 Sat by Pulse 94 Oximetry General appearance: Present: mild distress, well-nourished - EENT Eyes: PERRL, EOM intact ENT: hearing intact, clear oral mucosa Ears: bilateral: normal - Neck Neck: supple, normal ROM - Respiratory Respiratory effort: normal Respiratory: bilateral: CTA - Breasts Breasts: normal - Cardiovascular Heart rate: 78 Rhythm: regular Heart Sounds: Present: S1 & S2. Absent: gallop, rub Extremities: no ischemia, pulses intact, No edema, normal color, Full ROM - Gastrointestinal General gastrointestinal: Present: soft, non-tender, non-distended, normal bowel sounds - Genitourinary Male genitourinary: normal - Integumentary Integumentary: clear, warm, dry - Musculoskeletal Musculoskeletal: 1, strength equal bilaterally - Neurologic Neurologic: moves all extremities - Psychiatric Psychiatric: memory intact, appropriate mood/affect, intact judgment & insight - Allied health notes Allied health notes reviewed: nursing, case management - Labs CBC & Chem 7: 12/19/19 10:52 12/20/19 05:33 Labs: Abnormal lab results 12/20/19 Range/Units 05:33 Carbon Dioxide 19 L (22-30) mmol/L BUN 68 H (9-20) mg/dL Creatinine 3.5 H (0.8-1.5) mg/dL
[2019-12-20] MEDS: FAMOTIDINE 10 MG TAB PO SCH (21:58)
[2019-12-21] MEDS: FUROSEMIDE 40 MG/4 ML INJ IV SCH (05:26)
[2019-12-21] MEDS: hydrALAZINE 25 MG TAB PO SCH ×3 (05:26→22:01)
[2019-12-21 05:32] LABS: Calcium 8.5 mg/dL (8.4-10.2)
[2019-12-21] MEDS: ISOSORBIDE DINITRATE 10 MG TAB PO SCH ×3 (09:10→21:35)
[2019-12-21] MEDS: METOPROLOL SUCCINATE XL 25 MG TAB PO SCH (10:28)
[2019-12-21] MEDS: FAMOTIDINE 10 MG TAB PO SCH ×2 (10:29→22:01)
[2019-12-21] MEDS: CLOPIDOGREL 75 MG TAB PO SCH (10:29)
[2019-12-21] MEDS: APIXABAN 2.5 MG TAB PO SCH ×2 (10:29→22:01)
[2019-12-21] MEDS: SODIUM BICARBONATE 650 MG TAB PO SCH ×2 (10:29→22:01)
--- NOTE | 2019-12-21 11:10 | Progress Note ---
Assessment and Plan Impression * Acute on chronic renal failure. Baseline creatinine approximately 1.13 October 2019 * Shortness of breath. Secondary to congestive heart failure * Atrial flutter * Hyperkalemia * Metabolic acidosis * Coronary artery disease. Recent myocardial infarction. Recommendations * Volume overload seems to be improving. He is responding to IV loop diuretic. * Change Lasix over to p.o. * He had acute myocardial infarction in October of this year and was transferred to [facility]. He had acute kidney injury at that time and required 1 dialysis treatment. His most recent creatinine was approximately 4.2 . He most likely had ATN. * His renal function appears to be stable. No urgent indication for dialysis today * Hyperkalemia has been corrected with medical treatment * Acidosis is improving. Continue oral sodium bicarbonate * His urine does not show any dipstick blood or protein. * Follow-up results of renal ultrasound and vasculitis work-up * Avoid nephrotoxins Subjective Date of service: 12/21/19 Interval history: Patient is comfortable today. Shortness of breath is better. No nausea or vomiting. Able to lie flat without any difficulty Objective - Vital Signs Vital signs: Vital Signs - 12hr 12/20/19 12/21/19 12/21/19 23:42 03:45 05:26 Temperature 98.0 F 98.9 F Pulse Rate 69 68 68 Respiratory 18 18 Rate Blood Pressure 105/51 144/73 144/73 O2 Sat by Pulse 97 96 Oximetry 12/21/19 07:45 Temperature Pulse Rate Respiratory Rate Blood Pressure O2 Sat by Pulse 96 Oximetry - General Appearance General appearance: well-developed, well-nourished, appears stated age EENT: PERRL, mucous membranes moist Neck: no JVD, no thyromegaly, no carotid bruit, supple Respiratory: Present: Decreased Breath Sounds (At the bases) Cardiology: irregularly irregular Gastrointestinal: normal, normoactive bowel sounds Integumentary: other (No edema) - Lab 12/19/19 10:52 12/21/19 04:56 Most recent lab results ABG pH 7.321 pH Units (7.350-7.450) L 12/19/19 09:45 ABG pCO2 35.9 mm Hg 12/19/19 09:45 ABG pO2 69.4 mm Hg (80.0-90.0) L 12/19/19 09:45 ABG HCO3 18.1 mmol/L (20.0-26.0) L 12/19/19 09:45 ABG O2 Saturation 92.7 % (95.0-99.0) L 12/19/19 09:45 Calcium 8.5 mg/dL (8.4-10.2) 12/21/19 04:56 Magnesium 2.00 mg/dL (1.7-2.3) 12/19/19 10:52 Medications & Allergies - Medications Allergies/Adverse Reactions: Allergies Penicillins Allergy (Verified 10/18/19 08:32) Unknown Tetanus Vaccines and Toxoid [Tetanus Vaccines & Toxoid] Allergy (Verified 10/18/19 08:32) Unknown Home Medications: Home Medications Medication Instructions Recorded Confirmed Last Taken Type Apixaban [Eliquis] 2.5 mg PO BID 12/19/19 12/19/19 12/18/19 08:00 History Aspirin EC [Halfprin EC] 81 mg PO DAILY 12/19/19 12/19/19 12/18/19 08:00 History AtorvaSTATin [Lipitor] 80 mg PO QHS 12/19/19 12/19/19 12/18/19 08:00 History Clopidogrel [Plavix] 75 mg PO DAILY 12/19/19 12/19/19 12/18/19 08:00 History Furosemide [Lasix TAB] 40 mg PO DAILY 12/19/19 12/19/19 12/18/19 08:00 History Isosorbide Dinitrate [Isordil 10 mg PO TID 12/19/19 12/19/19 12/18/19 20:00 History Titradose] Metoprolol Xl [Metoprolol 12.5 mg PO QDAY 12/19/19 12/19/19 12/18/19 08:00 History SUCCINATE ER TAB] hydrALAZINE [Apresoline] 25 mg PO Q8HR 12/19/19 12/19/19 12/18/19 08:00 History Active Medications: Generic Name Dose Route Start Last Admin Trade Name Freq PRN Reason Stop Dose Admin Acetaminophen 650 mg 12/19/19 19:34 Tylenol PO Q4H PRN Pain MILD(1-3)/Fever >100.5/KANG Apixaban 2.5 mg 12/19/19 22:00 12/21/19 10:29 Eliquis PO 2.5 mg BID RAVI Administration Protocol Clopidogrel Bisulfate 75 mg 12/19/19 20:00 12/21/19 10:29 Plavix PO 75 mg DAILY RAVI Administration Famotidine 10 mg 12/20/19 22:00 12/21/19 10:29 Pepcid PO 10 mg BID RAVI Administration Furosemide 40 mg 12/19/19 18:00 12/21/19 05:26 Lasix IV 40 mg 0600,1800 RAVI Administration Hydralazine HCl 25 mg 12/19/19 22:00 12/21/19 05:26 Apresoline PO 25 mg Q8HR RAVI Administration Hydromorphone HCl 0.5 mg 12/19/19 19:31 Dilaudid IV Q3H PRN Pain , Severe (7-10) Isosorbide Dinitrate 10 mg 12/19/19 20:00 12/20/19 21:58 Isordil Titradose PO 10 mg TID RAVI Administration Metoclopramide HCl 5 mg 12/19/19 19:31 Reglan IV Q6H PRN Nausea And Vomiting Metoprolol Succinate 12.5 mg 12/19/19 20:00 12/21/19 10:28 Metoprolol Xl PO 12.5 mg QDAY RAVI Administration Ondansetron HCl 4 mg 12/19/19 19:34 Zofran IV Q8H PRN Nausea And Vomiting Oxycodone/Acetaminophen 1 tab 12/19/19 19:31 Percocet 5/325 PO Q6H PRN Pain, Moderate (4-6) Promethazine HCl 25 mg 12/19/19 19:31 Phenergan ID Q6H PRN N/V IF NPO AND NO IV ACCESS Sodium Bicarbonate 650 mg 12/19/19 22:00 12/21/19 10:29 Sodium Bicarbonate PO 650 mg BID RAVI Administration Sodium Chloride 10 ml 12/19/19 22:00 12/21/19 10:29 Sodium Chloride Flush Syringe 10 Ml IV 10 ml BID RAVI Administration Sodium Chloride 10 ml 12/19/19 19:31 Sodium Chloride Flush Syringe 10 Ml IV PRN PRN LINE FLUSH
--- NOTE | 2019-12-21 11:31 | Progress Note ---
Assessment and Plan pt able to ly flat, in discussion with renal change to lasix 40mg bid, if renal function stable in am and sob stable in am, may discharge - Patient Problems (1) NSTEMI (non-ST elevated myocardial infarction) Current Visit: Yes Status: Acute (2) Acute exacerbation of CHF (congestive heart failure) Current Visit: Yes Status: Acute Qualifiers: Heart failure type: combined systolic and diastolic Qualified Code(s): I50.43 - Acute on chronic combined systolic (congestive) and diastolic (congestive) heart failure (3) Acute hypoxemic respiratory failure Current Visit: Yes Status: Acute (4) Cardiorenal syndrome with renal failure Current Visit: Yes Status: Acute (5) Atrial flutter, chronic Current Visit: Yes Status: Chronic (6) CAD (coronary artery disease) Current Visit: Yes Status: Chronic Qualifiers: Coronary Disease-Associated Artery/Lesion type: bypass graft [place] vs. transplanted heart: [place] heart Associated angina: with stable angina Quali fied Code(s): I25.708 - Atherosclerosis of coronary artery bypass graft(s), unspecified, with other forms of angina pectoris (7) HLD (hyperlipidemia) Current Visit: Yes Status: Chronic Qualifiers: Hyperlipidemia type: mixed hyperlipidemia Qualified Code(s): E78.2 - Mixed hyperlipidemia (8) HTN (hypertension) Current Visit: Yes Status: Chronic Qualifiers: Hypertension type: essential hypertension Qualified Code(s): I10 - Essential (primary) hypertension Subjective Date of service: 12/21/19 Principal diagnosis: chf Interval history: pt states sob is improving Objective Vital Signs Temp Pulse Resp BP BP Pulse Ox 12/21/19 07:45 96 12/21/19 05:26 68 144/73 12/21/19 03:45 98.9 F 68 18 144/73 96 12/20/19 23:42 98.0 F 69 18 105/51 97 12/20/19 21:58 78 12/20/19 21:13 91 H 12/20/19 20:30 95 12/20/19 20:18 98.6 F 78 20 131/78 94 12/20/19 17:15 98.3 F 73 18 130/76 94 12/20/19 12:16 98.1 F 18 121/68 - Physical Examination General: No Apparent Distress HEENT: Positive: PERRL, Mucus Membranes Moist Neck: Positive: neck supple, trachea midline Cardiac: Positive: Irregularly Regular Lungs: Positive: clear to auscultation Neuro: Positive: Grossly Intact Abdomen: Positive: Soft, Active Bowel Sounds. Negative: Tender, Distended Skin: Positive: Clear Incision: Cardiac Cath Site Musculoskeletal: No Pain, Normal Range of Motion Extremities: Present: normal. Absent: edema - Labs and Meds Comprehensive Metabolic Panel 12/21/19 Range/Units 04:56 Sodium 140 (137-145) mmol/L Potassium 3.9 (3.6-5.0) mmol/L Chloride 100.5 (98-107) mmol/L Carbon Dioxide 24 (22-30) mmol/L BUN 76 H (9-20) mg/dL Creatinine 3.5 H (0.8-1.5) mg/dL Glucose 89 (75-100) mg/dL Calcium 8.5 (8.4-10.2) mg/dL - Imaging and Cardiology EKG: report reviewed Echo: report reviewed ([place] 12/2019. Normal LV function) Cardiac cath: report reviewed (10/2019 with a patent LAD trifurcation 99% PCI of the LAD with 2 drug-eluting stents circumflex. RCA distal 80%) - EKG Supraventricular dysrhythmia: atrial flutter (at 70's)
--- NOTE | 2019-12-21 12:02 | Progress Note ---
Subjective Date of service: 12/21/19 Principal diagnosis: chf Interval history: 89-year-old male is awake and alert and resting in the bed, no apparent distress, he is on O2 via nasal cannula, he denies any chest pain or shortness of breath. All interdisciplinary notes reviewed including cardiology and nephrology notes Vital signs reviewed On examination No apparent distress H EENT: Normocephalic pupils are round reactive to light, throat is clear Neck: Supple, no JVD Lungs: diminished breath sounds with bilateral basal rales Heart: S1-S2 regular rate and rhythm Abdomen: Benign, no hepatosplenomegaly Extremities: No leg edema Lab results reviewed A/P: Acute on chronic kidney disease Nephrology following Improving Avoid nephrotoxins Acute hypoxic respiratory failure: Improving well Presently on oxygen via nasal cannula with O2 sats greater than 90% Continue neb treatments as ordered CHF with volume overload Cardiology note reviewed and appreciated Continue management per cardiology NSTEMI-: Cardiology note reviewed Continue per cardiology recommendations Hyperkalemia: Improved Atrial flutter Rate controlled Continue Eliquis Objective - Constitutional Vitals: Vital Signs - 12hr 12/21/19 12/21/19 12/21/19 03:45 05:26 07:45 Temperature 98.9 F Pulse Rate 68 68 Respiratory 18 Rate Blood Pressure 144/73 144/73 O2 Sat by Pulse 96 96 Oximetry - Labs CBC & Chem 7: 12/19/19 10:52 12/21/19 04:56 Labs: Abnormal lab results 12/20/19 12/21/19 Range/Units 19:06 04:56 BUN 76 H (9-20) mg/dL Creatinine 3.5 H (0.8-1.5) mg/dL Troponin T 0.039 H D (0.00-0.029) ng/mL
[2019-12-21] MEDS: FUROSEMIDE 40 MG TAB PO SCH (17:25)
[2019-12-22] MEDS: FUROSEMIDE 40 MG TAB PO SCH (06:12)
[2019-12-22] MEDS: hydrALAZINE 25 MG TAB PO SCH ×2 (06:12→13:07)
[2019-12-22 06:54] LABS: Calcium 8.6 mg/dL (8.4-10.2)
[2019-12-22] MEDS: ISOSORBIDE DINITRATE 10 MG TAB PO SCH ×2 (08:55→13:07)
[2019-12-22] MEDS: METOPROLOL SUCCINATE XL 25 MG TAB PO SCH (09:00)
[2019-12-22] MEDS: SODIUM BICARBONATE 650 MG TAB PO SCH (09:00)
[2019-12-22] MEDS: FAMOTIDINE 10 MG TAB PO SCH (09:00)
[2019-12-22] MEDS: APIXABAN 2.5 MG TAB PO SCH (09:00)
[2019-12-22] MEDS: CLOPIDOGREL 75 MG TAB PO SCH (09:01)
--- NOTE | 2019-12-22 09:52 | Progress Note ---
Assessment and Plan Currently stable cardiac status. Pt may discharge from cardiology standpoint on present cardiac regimen. Follow up at [facility] with Dr. Summers on 01/13/2020 @ 10:45AM. The patient has been seen in conjunction with Dr. Elvira Penn who agrees with the assessment and plan of care. - Patient Problems (1) Acute heart failure with preserved ejection fraction (HFpEF) Current Visit: Yes Status: Acute (2) Acute on chronic renal failure Current Visit: Yes Status: Acute (3) CAD (coronary artery disease) Current Visit: Yes Status: Chronic Qualifiers: Coronary Disease-Associated Artery/Lesion type: bypass graft [place] vs. transplanted heart: [place] heart Associated angina: with stable angina Qualified Code(s): I25.708 - Atherosclerosis of coronary artery bypass graft(s), unspecified, with other forms of angina pectoris (4) History of coronary artery bypass graft Current Visit: Yes Status: Chronic (5) Stented coronary artery Current Visit: Yes Status: Chronic (6) Elevated troponin level Current Visit: Yes Status: Acute (7) Atrial flutter, chronic Current Visit: Yes Status: Chronic (8) HTN (hypertension) Current Visit: Yes Status: Chronic Qualifiers: Hypertension type: essential hypertension Qualified Code(s): I10 - Essential (primary) hypertension (9) HLD (hyperlipidemia) Current Visit: Yes Status: Chronic Qualifiers: Hyperlipidemia type: mixed hyperlipidemia Qualified Code(s): E78.2 - Mixed hyperlipidemia Subjective Date of service: 12/22/19 Principal diagnosis: chf Interval history: pt laying flat comfortably. no current cardiac complaints. tele reviewed - in AFlutter HR 70s, SVR noted overnight while sleeping. Objective Last Vital Signs Temp 98.6 F 12/22/19 07:51 Pulse 71 12/22/19 09:00 Resp 18 12/22/19 08:23 BP 142/73 12/22/19 09:00 Pulse Ox 94 12/22/19 08:23 - Physical Examination General: No Apparent Distress HEENT: Positive: PERRL, Mucus Membranes Moist Neck: Positive: neck supple, trachea midline Cardiac: Positive: Reg Rate and Rhythm, S1/S2 Lungs: Positive: Decreased Breath Sounds Neuro: Positive: Grossly Intact Abdomen: Positive: Soft, Active Bowel Sounds. Negative: Tender, Distended Skin: Positive: Clear Incision: Cardiac Cath Site Musculoskeletal: No Pain, Normal Range of Motion Extremities: Present: normal. Absent: edema - Labs and Meds Comprehensive Metabolic Panel 12/22/19 Range/Units 05:46 Sodium 144 (137-145) mmol/L Potassium 4.1 (3.6-5.0) mmol/L Chloride 101.7 (98-107) mmol/L Carbon Dioxide 24 (22-30) mmol/L BUN 78 H (9-20) mg/dL Creatinine 3.6 H (0.8-1.5) mg/dL Glucose 90 (75-100) mg/dL Calcium 8.6 (8.4-10.2) mg/dL - Imaging and Cardiology EKG: report reviewed Echo: report reviewed ([place] 12/2019. Normal LV function) Cardiac cath: report reviewed (10/2019 with a patent LAD trifurcation 99% PCI of the LAD with 2 drug-eluting stents circumflex. RCA distal 80%)
[2019-12-22 13:07] VITALS: BP 155/69
--- NOTE | 2019-12-22 14:46 | Discharge Summary ---
Providers - Providers Date of Admission: 12/19/19 11:37 Attending physician: RAMOS FRANKLIN MD 12/19/19 11:32 Consult to Physician [CONS] Urgent Comment: Consulting Provider: JOANA ADRIAN Physician Instructions: Reason For Exam: walker cardiorenal syndrome 12/19/19 19:31 Consult to Physician [CONS] Routine Comment: Consulting Provider: LM MONTIEL Physician Instructions: Reason For Exam: CHF exacerbation [facility] Condition: Stable Disposition: DC/[place]-06 HOME [facility] Time spent for discharge: 35 mins Core Measure Documentation - Palliative Care Palliative Care/ Comfort Measures: Not Applicable Exam - Constitutional Vitals: Temp Pulse Resp BP Pulse Ox 98.6 F 75 18 155/69 94 12/22/19 07:51 12/22/19 13:07 12/22/19 08:23 12/22/19 13:07 12/22/19 08:23 Plan Activity: advance as tolerated, fall precautions Diet: low salt, renal Special Instructions: record daily weights, record daily BP diary Follow up with: ADENIKE MCMAHONADRIAN MD DANIEL [Primary Care Provider] - 3-5 Days LM MONTIEL MD [Staff Physician] - 7 Days JOANA ADRIAN MD [Staff Physician] - 7 Days Prescriptions: Furosemide [Lasix TAB] 40 mg PO 0600,1800 #60 tablet
[2019-12-24 23:23] LABS: Albumin 3.2 g/dL (3.8-4.8); Gamma Globulin 1.3 g/dL (0.8-1.7)
== END 2019-12-22 16:35 | disposition home or self-care (01) | DRG 280 ==
LOC: ED 08:11 → 4A 11:37
PROVIDERS: ADMIT Internal Medicine; ATTEND Internal Medicine
PROC: 4A033R1 Measurement of Arterial Saturation, Peripheral, Percutaneous Approach (ICD-10-PCS; principal; 2019-12-19)
DX: I13.0 Hypertensive heart and chronic kidney disease with heart failure and stage 1 through stage 4 chronic kidney disease, or unspecified chronic kidney disease (principal); I21.A1 Myocardial infarction type 2; J96.01 Acute respiratory failure with hypoxia; I50.43 Acute on chronic combined systolic (congestive) and diastolic (congestive) heart failure; E44.1 Mild protein-calorie malnutrition; I48.92 Unspecified atrial flutter; N17.9 Acute kidney failure, unspecified; E87.2 Acidosis; J44.1 Chronic obstructive pulmonary disease with (acute) exacerbation; N18.9 Chronic kidney disease, unspecified; I25.708 Atherosclerosis of coronary artery bypass graft(s), unspecified, with other forms of angina pectoris; E78.2 Mixed hyperlipidemia; K21.9 Gastro-esophageal reflux disease without esophagitis; E87.5 Hyperkalemia; R74.0 Nonspecific elevation of levels of transaminase and lactic acid dehydrogenase [LDH]; Z95.1 Presence of aortocoronary bypass graft; Z95.5 Presence of coronary angioplasty implant and graft; Z88.0 Allergy status to penicillin; Z79.899 Other long term (current) drug therapy; Z79.82 Long term (current) use of aspirin; I25.2 Old myocardial infarction; Z82.49 Family history of ischemic heart disease and other diseases of the circulatory system
CPT/HCPCS: 36415; 71045; 76770; 80048; 80053; 80061; 80074; 81001; 82140; 82550; 82803; 82962; 83036; 83735; 84165; 84484; 85025; 85610; 85730; 86021; 86160; 86850; 86900; 86901; 87040; 93005; 93010; 94760; 96374; 96375; G0378; J1940